=== PATIENT | female | born 1985 | race African-American/Black ===

== ENCOUNTER 2021-06-08 07:05 | Emergency (ER) | payer SELFPAY ==
--- NOTE | 2021-06-08 07:25 | NUR ---
Called- No response - Abbe
--- NOTE | 2021-06-08 07:30 | NUR ---
Called- No response - Abbe
--- NOTE | 2021-06-08 07:35 | NUR ---
Called- No Response. Eloped
== END 2021-06-08 07:37 | disposition home or self-care (01) ==
LOC: ER 07:14
DX: Z53.21 Procedure and treatment not carried out due to patient leaving prior to being seen by health care provider (principal)